=== PATIENT | male | born 1955 | race Hispanic/Latino ===

== ENCOUNTER → 2018-07-15 | Day surgery (SDC) | payer MEDICARE ==
[2018-07-13 10:30] LABS: BASOPHILS # (AUTO) 0.1 (0.0-0.1); BASOPHILS % 0.8 % (0.0-1.0); EOSINOPHILS # (AUTO) 0.2 (0.0-0.4); EOSINOPHILS % 2.7 % (0.0-6.0); HEMATOCRIT 38.2 % (38.2-49.6); HEMOGLOBIN 12.3 g/dL (14.0-18.0); LYMPHOCYTES # (AUTO) 1.6 (1.0-3.2); LYMPHOCYTES % 26.2 % (18.0-39.1); MEAN CORPUSCULAR HEMOGLOBIN 29.9 pg (28-32); MEAN CORPUSCULAR HGB CONC 32.2 g/dL (31-35); MEAN CORPUSCULAR VOLUME 92.9 fL (81-99); MONOCYTES # (AUTO) 0.5 (0.2-0.8); MONOCYTES % 8.7 % (4.4-11.3); NEUTROPHILS # (AUTO) 3.8 (2.1-6.9); NEUTROPHILS % 61.1 % (38.7-80.0); PLATELET COUNT 160 x10e3/uL (140-360); RED BLOOD COUNT 4.11 x10e6/uL (4.3-5.7); RED CELL DISTRIBUTION WIDTH 14.8 % (11.7-14.4)
[~2018-07-15] MED LIST: ASPIR 8181 MG PO; ATORVASTATIN CA20 MG PO; CALTRATE-600 W1 EACH PO; DEXTROSE 5% 250ML 250 ML IV ONE; FENTANYL CITRATE/PF 100MCG/2 ML INJ ONE; FUROSEMIDE40 MG PO; GABAPENTIN300 MG PO; HYOSCYAMINE SULFATE 0.5 MG/ML INJ ONE; IRON PO; ISOSORBIDE MONO30 MG PO; LISINOPRIL10 MG PO; MENS ONE A DAY PO; METFORMIN HCL500 MG PO; METOPROLOL SUCC25 MG PO; MIDAZOLAM HCL 2 MG/2 ML VIAL ONE; OMEPRAZOLE40 MG PO; PROPOFOL IV EMULSION 10 MG/ML 50 ML VIAL ONE; TIZANIDINE HCL4 MG PO
--- OUTSIDE RECORDS SUMMARY | 2018-07-15 06:43 | XMS REPORT ---
[facility] Address Unknown Phone Unavailable Care Team Providers Care Water Treatment Technician Name Role Phone Unavailable Unavailable Payers Payer Name Policy Type Policy Number Effective Date Expiration Date Problems This patient has no known problems. Allergies, Adverse Reactions, Alerts Allergy Name Allergy Type Status Severity Reaction(s) Onset Date Inactive Date Treating Clinician Comments No Known Allergies DA Active U 2018-03-16 00:00:00 No Known Allergies DA Active U 2017-06-18 00:00:00 Medications This patient has no known medications. Encounters Start Date/Time End Date/Time Encounter Type Admission Type Attending [facility] Facility Care Department Encounter ID 2018-10-05 00:00:00 2018-10-05 00:00:[address] [facility] [id number] 2018-08-26 00:00:00 2018-08-26 00:00:[address] [facility] [id number] 2018-07-26 00:00:00 2018-07-26 00:00:[address] [facility] [id number] 2018-07-13 12:09:26 2018-07-13 12:09:[address] [facility] [id number] 2018-07-07 09:42:39 2018-07-07 09:42:[address] [facility] [id number] 2018-06-28 10:25:22 2018-06-28 10:25:[address] [facility] [id number] 2018-06-24 00:00:00 2018-06-24 00:00:[address] [facility] [id number] 2018-06-23 13:22:28 2018-06-23 13:22:[address] [facility] [id number] 2018-06-22 11:46:42 2018-06-22 11:46:[address] [facility] [id number] 2018-06-22 11:39:31 2018-06-22 11:39:[address] [facility] [id number] 2018-06-21 00:00:00 2018-06-21 00:00:[address] [facility] [id number] 2018-06-16 09:34:34 2018-06-16 09:34:[address] [facility] [id number] 2018-06-03 16:10:58 2018-06-03 16:10:[address] [facility] [id number] 2018-06-03 14:25:47 2018-06-03 14:25:[address] [facility] [id number] 2018-05-31 09:24:51 2018-05-31 09:24:[address] [facility] [id number] 2018-05-27 09:09:36 2018-05-27 09:09:[address] [facility] [id number] 2018-04-26 10:21:46 2018-04-26 10:21:[address] [facility] [id number] 2018-04-05 18:49:08 2018-04-05 18:49:[address] [facility] [id number] 2018-03-30 15:09:38 2018-03-30 15:09:[address] [facility] [id number] 2018-03-23 10:55:21 2018-03-23 10:55:[address] [facility] [id number] 2018-03-23 10:21:59 2018-03-23 10:21:[address] [facility] [id number] 2018-03-16 11:10:29 2018-03-16 11:10:[address] [facility] [id number] 2018-03-16 09:46:55 2018-03-16 09:46:[address] [facility] [id number] 2018-03-16 00:00:00 2018-03-16 00:00:[address] [facility] [id number] 2018-03-04 00:00:00 2018-03-04 00:00:[address] [facility] [id number] 2018-02-26 11:04:17 2018-02-26 11:04:[address] [facility] [id number] 2018-02-18 13:04:58 2018-02-18 13:04:[address] [facility] [id number] 2018-02-18 11:20:38 2018-02-18 11:20:[address] [facility] [id number] 2018-02-18 10:25:56 2018-02-18 10:25:[address] [facility] [id number] 2018-02-15 00:00:00 2018-02-15 00:00:[address] [facility] [id number] 2018-02-12 09:27:56 2018-02-12 09:27:[address] [facility] [id number] 2018-02-08 00:00:00 2018-02-08 00:00:[address] [facility] [id number] 2018-01-23 16:00:22 2018-01-23 16:00:[address] [facility] [id number] 2018-01-22 09:29:33 2018-01-22 09:29:[address] [facility] [id number] 2018-01-12 00:00:00 2018-01-12 00:00:[address] [facility] [id number] 2018-01-01 00:00:00 2018-01-01 00:00:[address] [facility] [id number] 2017-12-31 10:53:40 2017-12-31 10:53:[address] [facility] [id number] 2017-12-30 15:16:19 2017-12-30 15:16:[address] [facility] [id number] 2017-12-30 00:00:00 2017-12-30 00:00:[address] [facility] [id number] 2017-12-23 14:58:16 2017-12-23 14:58:[address] [facility] [id number] 2017-12-15 09:09:17 2017-12-15 09:09:[address] [facility] [id number] 2017-12-15 00:00:00 2017-12-15 00:00:[address] [facility] [id number] 2017-12-08 00:00:00 2017-12-08 00:00:[address] [facility] [id number] 2017-11-30 06:37:53 2017-11-30 06:37:[address] [facility] [id number] 2017-11-26 10:07:00 2017-11-26 10:07:[address] [facility] [id number] 2017-11-18 07:19:10 2017-11-18 07:19:[address] [facility] [id number] 2017-11-17 12:36:21 2017-11-17 12:36:[address] [facility] [id number] 2017-11-17 09:12:15 2017-11-17 09:12:[address] [facility] [id number] 2017-11-16 00:00:00 2017-11-16 00:00:[address] [facility] [id number] 2017-11-12 00:00:00 2017-11-12 00:00:[address] [facility] [id number] 2017-11-12 00:00:00 2017-11-12 00:00:[address] [facility] [id number] 2017-11-06 13:00:02 2017-11-06 13:00:[address] [facility] [id number] 2017-10-29 16:15:03 2017-10-29 16:15:[address] [facility] [id number] 2017-10-29 14:26:57 2017-10-29 14:26:[address] [facility] [id number] 2017-10-22 09:50:34 2017-10-22 09:50:[address] [facility] [id number] 2017-10-15 10:31:04 2017-10-15 10:31:[address] [facility] [id number] 2017-10-15 08:24:54 2017-10-15 08:24:[address] [facility] [id number] 2017-10-09 00:00:00 2017-10-09 00:00:[address] [facility] [id number] 2017-10-08 13:35:27 2017-10-08 13:35:[address] [facility] [id number] 2017-10-05 00:00:00 2017-10-05 00:00:[address] [facility] [id number] 2017-10-01 10:58:14 2017-10-01 10:58:[address] [facility] [id number] 2017-09-28 08:52:36 2017-09-28 08:52:[address] [facility] [id number] 2017-09-28 08:15:14 2017-09-28 08:15:[address] [facility] [id number] 2017-09-24 08:02:07 2017-09-24 08:02:[address] [facility] [id number] 2017-09-16 11:18:17 2017-09-16 11:18:[address] [facility] [id number] 2017-06-24 00:00:00 2017-06-24 00:00:[address] [facility] [id number] 2017-05-28 00:00:00 2017-05-28 00:00:[address] [facility] [id number] 2017-05-27 00:00:00 2017-05-27 00:00:[address] [facility] [id number] 2017-05-26 00:00:00 2017-05-26 00:00:[address] [facility] [id number] 2017-05-20 00:00:00 2017-05-20 00:00:[address] [facility] [id number] 2017-05-20 00:00:00 2017-05-20 00:00:[address] [facility] [id number] 2017-05-18 00:00:00 2017-05-18 00:00:[address] [facility] [id number] 2017-05-15 14:53:57 2017-05-15 14:53:[address] [facility] [id number] 2017-05-14 10:27:22 2017-05-14 10:27:[address] [facility] [id number] 2017-05-12 00:00:00 2017-05-12 00:00:[address] [facility] [id number] 2017-05-05 16:31:02 2017-05-05 16:31:[address] [facility] [id number] 2017-05-05 14:10:13 2017-05-05 14:10:[address] [facility] [id number] 2017-04-30 00:00:00 2017-04-30 00:00:[address] [facility] [id number] 2017-04-29 00:00:00 2017-04-29 00:00:[address] [facility] [id number] 2017-04-06 00:00:00 2017-04-06 00:00:00 Outpatient [facility] [id number] 2017-04-01 00:00:00 2017-04-01 00:00:[address] [facility] [id number] 2017-03-26 15:24:49 2017-03-26 15:24:[address] [facility] [id number] 2017-03-06 14:34:42 2017-03-06 14:34:42 Outpatient [facility] [id number] 2017-03-05 00:00:00 2017-03-05 00:00:[address] [facility] [id number] 2017-02-23 00:00:00 2017-02-23 00:00:[address] [facility] [id number] 2017-02-19 18:19:14 2017-02-19 18:19:[address] [facility] [id number] 2017-02-19 16:30:51 2017-02-19 16:30:[address] [facility] [id number] 2017-02-19 14:43:55 2017-02-19 14:43:[address] [facility] [id number] 2017-02-19 13:49:36 2017-02-19 13:49:36 Outpatient [facility] [id number] 2017-02-19 11:29:15 2017-02-19 11:29:[address] [facility] [id number] 2017-02-18 12:19:16 2017-02-18 12:19:[address] [facility] [id number] 2017-02-18 10:02:24 2017-02-18 10:02:[address] [facility] [id number] 2017-02-16 10:17:29 2017-02-16 10:17:[address] [facility] [id number] 2017-02-10 14:23:39 2017-02-10 14:23:[address] [facility] [id number] 2017-02-04 15:56:04 2017-02-04 15:56:[address] [facility] [id number] 2017-02-04 14:39:01 2017-02-04 14:39:[address] [facility] [id number] 00:00:00 2017 00:00:[address] [facility] [id number] 2017-01-26 00:00:00 2017-01-26 00:00:[address] [facility] [id number] 2017-01-26 00:00:00 2017-01-26 00:00:[address] [facility] [id number] 2017-01-23 14:08:36 2017-01-23 14:08:[address] [facility] [id number] 2017-01-23 13:58:21 2017-01-23 13:58:[address] [facility] [id number] 2017-01-23 12:26:55 2017-01-23 12:26:[address] [facility] [id number] 2017-01-23 00:00:00 2017-01-23 00:00:[address] [facility] [id number] 2017-01-19 00:00:00 2017-01-19 00:00:[address] [facility] [id number] 2017-01-19 00:00:00 2017-01-19 00:00:[address] [facility] [id number] 2017-01-19 00:00:00 2017-01-19 00:00:[address] [facility] [id number] 2017-01-16 10:56:57 2017-01-16 10:56:[address] [facility] [id number] 2017-01-15 14:02:12 2017-01-15 14:02:[address] [facility] [id number] 2017-01-15 13:18:01 2017-01-15 13:18:[address] [facility] [id number] 2017-01-13 08:54:23 2017-01-13 08:54:[address] [facility] [id number] 2017-01-12 13:06:48 2017-01-12 13:06:[address] [facility] [id number] 2017-01-09 13:19:54 2017-01-09 13:19:[address] [facility] [id number] 2017-01-09 09:27:44 2017-01-09 09:27:[address] [facility] [id number] 2017-01-07 16:17:06 2017-01-07 16:17:[address] [facility] [id number]
[2018-07-15 11:10] VITALS: BP 121/68
--- NOTE | 2018-07-15 12:16 | Operative Report ---
DATE OF PROCEDURE: 07/15/2018 SURGEON: Earle Adair MD PROCEDURES: Colonoscopy and polypectomy. INDICATIONS FOR COLONOSCOPY: Surveillance colonoscopy, personal history of colon polyps. MEDICATIONS: The patient was done under MAC, please see anesthesiologist's note. PROCEDURE IN DETAIL: With the patient in left lateral decubitus position, flexible fiberoptic Olympus colonoscope was inserted into the rectum with ease and advanced all the way to the cecum. The scope was then withdrawn slowly and mucosa overlying the cecum, ascending colon grossly appeared to be within normal limits. Of note, the colon was excessively spastic and irritable and suboptimally visualized. One polyp was hot biopsied from the transverse colon. The descending grossly appeared to be within normal limits. One polyp was snared from the sigmoid colon and eight polyps were hot biopsied from the sigmoid colon. Four polyps were hot biopsied from the rectum. The scope was then retroflexed into the distal rectum and small internal hemorrhoids were noted, none of which was actively bleeding. There was an extrinsic compression noted against the distal rectal wall. The patient will need a CAT scan of the pelvis to further delineate the nature of that compression. The scope was then straightened out. The scope was subsequently withdrawn. The patient tolerated procedure well. IMPRESSION: 1. Colon excessively spastic and irritable and suboptimally visualized. 2. Transverse colon polyp, hot biopsied. 3. Sigmoid colon polyps x9, one snared and eight hot biopsied. 4. Rectal polyps x4 hot biopsied. 5. Extrinsic compression, distal rectum. 6. Internal hemorrhoids, none actively bleeding. A total of 14 polyps were removed. PLAN: Follow up histology. Initiate high-fiber, low-fat diet. Initiate high-fiber supplement. The patient will need a CT of the pelvis to delineate the nature of the extrinsic compression against the distal rectal wall. The patient will need a followup colonoscopy in one year. MD ROBERT Maddox/BEE /[id number]
== END | disposition home or self-care (01) ==
LOC: OR 06:41
PROVIDERS: ATTEND Internal Medicine Gastroenterology
DX: K58.9 Irritable bowel syndrome, unspecified (principal); D12.3 Benign neoplasm of transverse colon; K62.1 Rectal polyp; K62.89 Other specified diseases of anus and rectum; K64.8 Other hemorrhoids; K59.09 Other constipation; K21.9 Gastro-esophageal reflux disease without esophagitis; E11.9 Type 2 diabetes mellitus without complications; G62.9 Polyneuropathy, unspecified; M19.90 Unspecified osteoarthritis, unspecified site; I25.810 Atherosclerosis of coronary artery bypass graft(s) without angina pectoris; I25.2 Old myocardial infarction; I11.0 Hypertensive heart disease with heart failure; I50.9 Heart failure, unspecified; Z01.810 Encounter for preprocedural cardiovascular examination; Z01.812 Encounter for preprocedural laboratory examination; Z79.82 Long term (current) use of aspirin; Z79.84 Long term (current) use of oral hypoglycemic drugs; Z87.891 Personal history of nicotine dependence; Z86.19 Personal history of other infectious and parasitic diseases; Z95.1 Presence of aortocoronary bypass graft
CPT/HCPCS: 36415 ×2; 45384; 45385; 82948; 85025; 93005; J1980; J2250; J2704; J7070

== ENCOUNTER → 2018-08-26 | Outpatient (CLI) | payer MEDICARE ==
[~2018-08-26] MED LIST changes: -DEXTROSE 5% 250ML 250 ML IV ONE; +DIATRIZOATE MEGL/DIATRIZOA SOD 30 ML BTL PO ONE; -FENTANYL CITRATE/PF 100MCG/2 ML INJ ONE; -HYOSCYAMINE SULFATE 0.5 MG/ML INJ ONE; +IOPAMIDOL 370 MG/ML 200 ML INFUS..BTL INJ ONE; -MIDAZOLAM HCL 2 MG/2 ML VIAL ONE; -PROPOFOL IV EMULSION 10 MG/ML 50 ML VIAL ONE; +SODIUM CHLORIDE 0.9% 50ML 50 ML ONE
[2018-08-26 11:36] LABS: BLOOD UREA NITROGEN 19 mg/dL (7-26); BUN/CREATININE RATIO 19 (6-25); CREATININE, SERUM 0.99 mg/dL (0.72-1.25); EST GLOMERULAR FILTRATION RATE > 60 ML/MIN (60-)
--- NOTE | 2018-08-26 12:34 | Diagnostic Imaging Report ---
EXAM: CT Pelvis with contrast INDICATION: Tubular adenoma of the colon. COMPARISON: None. TECHNIQUE: The pelvis was scanned utilizing a multidetector helical scanner from the iliac crests to the pubic symphysis after administration of IV contrast. Coronal and sagittal reformations were obtained. Routine protocol was performed. Scan was performed when during portal venous phase. IV CONTRAST: 100 cc of Isovue 370. ORAL CONTRAST: Volumen COMPLICATIONS: None RADIATION DOSE: Total DLP: 282.9 mGy*cm Dose modulation, iterative reconstruction, and/or weight based adjustment of the mA/kV was utilized to reduce the radiation dose to as low as reasonably achievable. FINDINGS: KIDNEYS/URETERS: The lower kidneys are partially seen and appear unremarkable. GI TRACT: Partially visualized. There is negative contrast within the small bowel. There is no contrast opacification within the colon, which limits evaluation. No evidence of wall thickening or distension. PELVIC ORGANS/BLADDER: The bladder is unremarkable. There are calcified within the prostate. LYMPH NODES: No lymphadenopathy. VESSELS: Moderate to extensive atherosclerotic changes of the distal abdominal aorta and iliac vascular vessels. PERITONEUM / RETROPERITONEUM: No free air or fluid. BONES AND SOFT TISSUES: There has been posterior decompression and fusion from L4 through S1. No acute osseous abnormality. Likely postsurgical changes of the left iliac bone adjacent to the sacroiliac joint, which may reflect a bone graft site. CONCLUSION: Limited examination of the colon secondary to lack of contrast passage into the colon. If there is clinical concern for colon pathology, CT colonography may be considered for further evaluation. No acute CT findings in the pelvis. Signed by: Dr. Reggie Cárdenas MD on 08/26/2018 12:30 PM
== END ==
LOC: CT 09:57
PROVIDERS: ATTEND Internal Medicine Gastroenterology
DX: D12.6 Benign neoplasm of colon, unspecified (principal)
CPT/HCPCS: 36415; 72193; 82565; 84520; Q9967

== ENCOUNTER 2018-12-22 16:25 | Inpatient (IN) | payer MEDICARE, OTHER ==
[~2018-12-22] VITALS: Ht 154.4 cm; Wt 69.2 kg
[~2018-12-22 16:25] MED LIST changes: -DIATRIZOATE MEGL/DIATRIZOA SOD 30 ML BTL PO ONE; -IOPAMIDOL 370 MG/ML 200 ML INFUS..BTL INJ ONE; -SODIUM CHLORIDE 0.9% 50ML 50 ML ONE
[2018-12-22] MEDS ORDERED: PANTOPRAZOLE 40 MG 10ML VIAL IV NR ×2 (16:45→19:45)
--- NOTE | 2018-12-22 17:23 | Diagnostic Imaging Report ---
Exam: Chest one view Clinical history: Chest pain Findings: There is no evidence of pulmonary consolidation, pleural effusion, or pneumothorax. The cardiac size is within normal limits. The patient is status post cervical spine fusion with postoperative changes. Median sternotomy was also performed with postoperative changes. Impression: 1. No radiographic evidence of acute cardiorespiratory disease. Signed by: Dr. Mina Elmore MD on 12/22/2018 5:19 PM
[2018-12-22 18:33] LABS: BASOPHILS # (AUTO) 0.1 (0.0-0.1); BASOPHILS % 0.5 % (0.0-1.0); EOSINOPHILS # (AUTO) 0.2 (0.0-0.4); EOSINOPHILS % 2.2 % (0.0-6.0); HEMATOCRIT 36.2 % (38.2-49.6); HEMOGLOBIN 12.2 g/dL (14.0-18.0); LYMPHOCYTES # (AUTO) 2.6 (1.0-3.2); LYMPHOCYTES % 26.8 % (18.0-39.1); MEAN CORPUSCULAR HGB CONC 33.7 g/dL (31-35); MEAN CORPUSCULAR VOLUME 91.9 fL (81-99); MONOCYTES # (AUTO) 0.7 (0.2-0.8); MONOCYTES % 7.3 % (4.4-11.3); NEUTROPHILS % 62.7 % (38.7-80.0); PLATELET COUNT 170 x10e3/uL (140-360); RED BLOOD COUNT 3.94 x10e6/uL (4.3-5.7); RED CELL DISTRIBUTION WIDTH 13.9 % (11.7-14.4)
[2018-12-22] MEDS ORDERED: SODIUM CHLORIDE 0.9% 1000ML 1,000 ML ONE (18:36)
[2018-12-22 18:39] LABS: INR 0.97; PROTHROMBIN TIME 13.4 seconds (11.9-14.5)
[2018-12-22 18:40] LABS: PARTIAL THROMBOPLASTIN TIME 29.4 seconds (23.8-35.5)
--- NOTE | 2018-12-22 18:41 | Diagnostic Imaging Report ---
EXAM: Gallbladder Ultrasound INDICATION: ^RUQ ABD PAIN COMPARISON: None. TECHNIQUE: Transverse and longitudinal images of the gallbladder were obtained. FINDINGS: Liver: Unremarkable in appearance measuring 11.5 cm Gallbladder: Stones/Sludge: Numerous gallstones in the lumen of the gallbladder Wall: 0.2 cm Appearance: No wall thickening, pericholecystic fluid or hydrops. Sonographic Decker's Sign: Negative Bile Ducts: Intrahepatic Ducts: No dilatation Extrahepatic Ducts: Common bile duct measures 0.5 cm, no dilatation Main portal vein and normal in appearance measuring 1.2 cm. 2.3 x 2.0 x 1.9 cm simple appearing lateral right renal cyst. Right kidney otherwise normal in appearance measuring 9.6 cm. Pancreas and abdominal aorta not well seen. Inferior vena cava grossly unremarkable. Free Fluid: No ascites or pleural effusion IMPRESSION: Numerous gallstones in the lumen of the gallbladder. No ductal dilatation. 2.3 cm lateral simple appearing right renal cyst Signed by: Dr. Harman Orozco M.D. on 12/22/2018 6:37 PM
[2018-12-22] MEDS ORDERED: SODIUM CHLORIDE 0.9% IV SCH (18:45)
[2018-12-22 18:46] LABS: ALBUMIN 4.5 g/dL (3.5-5.0); ALBUMIN/GLOBULIN RATIO 1.5 (0.8-2.0); CALCIUM 10.5 mg/dL (8.4-10.2); CREATININE, SERUM 1.56 mg/dL (0.72-1.25); MAGNESIUM 1.5 MG/DL (1.3-2.1)
[2018-12-22 18:55] LABS: CREATINE KINASE MB 1.4 ng/mL (0-5.0)
[2018-12-22] MEDS ORDERED: SODIUM CHLORIDE 0.9% 1000ML 1,000 ML IV SCH (19:29)
[2018-12-22 21:07] LABS: BILIRUBIN,URINE NEGATIVE (NEGATIVE); CLARITY,URINE CLEAR (CLEAR); COLOR,URINE YELLOW (YELLOW); KETONES,URINE NEGATIVE (NEGATIVE); LEUKOCYTE ESTERASE ,URINE NEGATIVE (NEGATIVE); NITRITE,URINE NEGATIVE (NEGATIVE); PROTEIN,URINE DIPSTICK NEGATIVE (NEGATIVE); URINE UROBILINOGEN 0.2 mg/dL (0.2 - 1)
[2018-12-22 21:19] LABS: BACTERIA,URINE MODERATE /HPF; EPITHELIAL CELLS,URINE RARE /LPF; HYALINE CASTS 0-1 (0-1); RENAL EPITHELIAL CELLS,URINE FEW
--- NOTE | 2018-12-22 21:19 | NUR ---
bs 60. pt asymptomatic. informed. juice x 2 cups given per orders.
[2018-12-22 21:35] VITALS: BP 159/74
[2018-12-22 21:45] VITALS: BP 159/74
--- NOTE | 2018-12-22 21:45 | NUR ---
RECEIVED FROM ER IN A STRETCHER WITH C/O ABD.PAIN.AAOX3.AMBULATES WITH CANE.NO RESP.DISTRESS .ASSESSMENT DONE.IV RUNNING TO LEFT FOR ARM #18G.SNACK PROVIDED.TOLERATES CLEAR LIQUID DIET.CONSULTS CALLED.ORIENTED TO THE UNIT.BED LOCKED AND IN LOWEST POSITION.PHONE AND CALL LIGHT WITHIN REACH.INSTRUCTED TO CALL FOR ASSISTANCE NEEDED.
[2018-12-22 22:00] VITALS: BP 159/74
[2018-12-22] MEDS: MORPHINE SULFATE INJ 4 MG/ML INJ 1ML IV PRN (23:00)
[2018-12-22] MEDS: ONDANSETRON HCL INJ 2MG/ML 2ML 2 MG/ML VIAL IV PRN (23:00)
[2018-12-22] MEDS ORDERED: HUMULIN N100 UNITS/ SC ×2 (23:33)
[2018-12-23] VITALS (8 sets, daily range): BP systolic 124–156; BP diastolic 60–77
[2018-12-23] MEDS: PANTOPRAZOLE 40 MG 10ML VIAL IV SCH ×2 (01:56→14:17)
[2018-12-23] MEDS: ACETAMINOPHEN 325 MG TAB PO PRN (03:00)
--- NOTE | 2018-12-23 04:04 | NUR ---
DR.M SÁNCHEZ WAS IN THE UNIT.C/O HEADACHE.RECEIVED NEW ORDERS FROM .NPO FOR HIDA SCAN.
[2018-12-23 05:40] LABS: BASOPHILS % 0.6 % (0.0-1.0); EOSINOPHILS # (AUTO) 0.3 (0.0-0.4); EOSINOPHILS % 3.5 % (0.0-6.0); HEMATOCRIT 33.8 % (38.2-49.6); HEMOGLOBIN 11.5 g/dL (14.0-18.0); LYMPHOCYTES # (AUTO) 2.4 (1.0-3.2); LYMPHOCYTES % 33.8 % (18.0-39.1); MEAN CORPUSCULAR HEMOGLOBIN 31.2 pg (28-32); MEAN CORPUSCULAR VOLUME 91.6 fL (81-99); MONOCYTES # (AUTO) 0.5 (0.2-0.8); NEUTROPHILS # (AUTO) 3.9 (2.1-6.9); NEUTROPHILS % 54.8 % (38.7-80.0); PLATELET COUNT 140 x10e3/uL (140-360); RED BLOOD COUNT 3.69 x10e6/uL (4.3-5.7); RED CELL DISTRIBUTION WIDTH 13.9 % (11.7-14.4)
[2018-12-23 06:03] LABS: ALANINE AMINOTRANSFERASE 16 IU/L (0-55); ALBUMIN 3.8 g/dL (3.5-5.0); ALBUMIN/GLOBULIN RATIO 1.3 (0.8-2.0); ALKALINE PHOSPHATASE 74 IU/L (40-150); ANION GAP 10.5 mmol/L (8-16); BLOOD UREA NITROGEN 19 mg/dL (7-26); BUN/CREATININE RATIO 16 (6-25); CALCIUM 9.9 mg/dL (8.4-10.2); CARBON DIOXIDE 29 mmol/L (22-29); CHLORIDE 105 mmol/L (98-107); EST GLOMERULAR FILTRATION RATE > 60 ML/MIN (60-); GLUCOSE 125 mg/dL (74-118); POTASSIUM 4.5 mmol/L (3.5-5.1); SODIUM 140 mmol/L (136-145)
--- NOTE | 2018-12-23 07:00 | NUR ---
Bed side shift report given to the oncoming rn.stable condition.
--- NOTE | 2018-12-23 07:00 | NUR ---
BEDSIDE SHIFT REPORT RECEIVED FROM NIGHT RN. PT DENIES NEEDS AT THIS TIME.
[2018-12-23] MEDS: ONDANSETRON HCL INJ 2MG/ML 2ML 2 MG/ML VIAL IV PRN ×2 (07:16→23:41)
[2018-12-23] MEDS: MORPHINE SULFATE INJ 4 MG/ML INJ 1ML IV PRN ×3 (07:16→23:41)
[2018-12-23] MEDS ORDERED: DEXTROSE 5%/LACTATED RINGERS 1,000 ML IV ONE (07:45)
[2018-12-23] MEDS: GABAPENTIN 300 MG CAP PO SCH ×3 (08:27→21:35)
[2018-12-23] MEDS ORDERED: TIZANIDINE HCL 4 MG TAB PO PRN (10:00)
--- NOTE | 2018-12-23 16:08 | NUR ---
PT OFF THE UNIT TO [employer].
[2018-12-23] MEDS ORDERED: FUROSEMIDE 40 MG TAB PO SCH (17:00)
[2018-12-23] MEDS ORDERED: MORPHINE SULFATE INJ 4 MG/ML INJ 1ML IV ONE (18:15)
--- NOTE | 2018-12-23 18:57 | NUR ---
CALLS MADE TO [facility] AND [facility] FOR MRI REPORT FROM RECENT MRI. REQUEST FAXED BY THIS NURSE WITH CONFIRMATION. NO REPORT RECEIVED AFTER NUMEROUS PHONE CALLS TO [facility]. THIS MATTER WAS DISCUSSED WITH CHARGE NURSE WITH CALL INFORMATION GIVEN AND NUMEROUS ATTEMPTS BY THE CHARGE TO GET MRI REPORT. REQUEST FAXED AGAIN WITH NO REPLY OF INFORMATION. FAX WAS CONFIRMED.
--- NOTE | 2018-12-23 19:10 | NUR ---
Report taken from morning Elli Yuen.Patient is lyeing in the bed.stable condition.
--- NOTE | 2018-12-23 19:15 | Diagnostic Imaging Report ---
EXAM: HIDA Scan with Morphine Challenge INDICATION: Abdominal pain x 2 months; cholelithiasis Report: Following the administration of 6 mCi of Tc-99m mebrofenin, dynamic images of the abdomen in the anterior projection were obtained through 60 minutes. Morphine sulfate 3 mg was administered intravenously and additional images were obtained through 30 minutes. Perfusion of the liver is normal. Extraction of tracer from the blood pool by the liver parenchyma is normal. Tracer appears promptly with in the biliary tract. Tracer is seen in the small bowel by 27 minutes post injection of the tracer. The gallbladder does not fill during the initial 60 minutes of imaging but does fill promptly following administration of morphine. Impression: Filling of the gallbladder excludes acute cystic duct obstruction/acute cholecystitis. Signed by: Dr. Padmini Lee M.D. on 12/23/2018 7:12 PM
[2018-12-23] MEDS ORDERED: ATORVASTATIN 20 MG TAB PO SCH (21:00)
--- NOTE | 2018-12-23 21:10 | NUR ---
Patient is agitated.stating want go home.hungry and need food other than clear liquid diet.notified to .received new orders.also charge nurse came and talked to the pt.plan of care discussed with pt.
[2018-12-24] VITALS (9 sets, daily range): BP systolic 112–182; BP diastolic 58–86
--- NOTE | 2018-12-24 01:03 | NUR ---
MAINTAINING NPO FOR CT SCAN LIVER.
[2018-12-24] MEDS: PANTOPRAZOLE 40 MG 10ML VIAL IV SCH ×2 (01:17→14:35)
[2018-12-24] MEDS ORDERED: HYDROCODONE/APAP 10MG-325MG TAB PO PRN (03:15)
--- NOTE | 2018-12-24 03:24 | NUR ---
is seeing the patient.tyesha morrissey voiced.ordered to give norco 10 mg po even though patient is on npo.carried out the order.
[2018-12-24] MEDS: ONDANSETRON HCL INJ 2MG/ML 2ML 2 MG/ML VIAL IV PRN ×2 (04:42→21:12)
[2018-12-24] MEDS: MORPHINE SULFATE INJ 4 MG/ML INJ 1ML IV PRN ×2 (04:43→12:36)
--- NOTE | 2018-12-24 06:50 | NUR ---
Bed side shift report given to the oncoming Rn.stable condition.
--- NOTE | 2018-12-24 07:00 | NUR ---
BEDSIDE SHIFT REPORT RECEIVED FROM NIGHT RN. PT DENIES NEEDS AT THIS TIME.
[2018-12-24] MEDS ORDERED: DIATRIZOATE MEGL/DIATRIZOA SOD 30 ML BTL PO ONE (08:09)
--- NOTE | 2018-12-24 08:21 | NUR ---
SPOKE TO MS MATHEW IN RECORD RELEASE DEPARTMENT THIS AM CONCERNING PREVIOUS DAYS REQUEST. RECORDS WERE FAXED THIS AM.
[2018-12-24] MEDS: GABAPENTIN 300 MG CAP PO SCH ×3 (09:00→21:00)
[2018-12-24] MEDS: ISOSORBIDE MONONITRATE 30 MG TAB CR PO SCH (09:00)
[2018-12-24] MEDS: METOPROLOL SUCCINATE 25 MG TAB XL PO SCH (09:00)
[2018-12-24] MEDS: FUROSEMIDE 20 MG TAB PO SCH ×2 (09:00→17:26)
[2018-12-24] MEDS: LISINOPRIL 10 MG TAB PO SCH (09:58)
--- NOTE | 2018-12-24 10:11 | Diagnostic Imaging Report ---
CT of the abdomen, with contrast, 12/24/2018. History: Right upper quadrant pain. Comparison: Ultrasound 12/22/2018. Technique: Multidetector CT scanning of the abdomen and pelvis was performed from the level of the lung bases to the iliac crests after intravenous and oral administration of contrast. Coronal and sagittal multiplanar reformations were obtained. RADIATION DOSE: Total DLP: 390 mGy*cm Dose modulation, iterative reconstruction, and/or weight based adjustment of the mA/kV was utilized to reduce the radiation dose to as low as reasonably achievable. Discussion: LUNG BASES: There is bibasilar atelectasis. ABDOMEN: Multiple low-density stones are present within the gallbladder. There is no gallbladder wall thickening. A 2 cm simple cyst is present in the lower pole of the right kidney. The liver, biliary tree, spleen, pancreas, adrenal glands, and kidneys are normal. The hepatic vein, portal vein, and splenic vein are patent. The abdominal aorta has diffuse atherosclerotic plaque and calcification but is within normal limits for size. The stomach and visualized bowel are unremarkable. There is no bowel dilatation. There is no evidence of adenopathy or free fluid. BONES AND SOFT TISSUES: Advanced degenerative and postsurgical changes are within the lumbar spine without evidence of lytic or sclerotic lesion. IMPRESSION: 1. Cholelithiasis. 2. Simple right renal cyst. Otherwise unremarkable exam. Signed by: Virgilio Whalen on 12/24/2018 10:08 AM
[2018-12-24] MEDS ORDERED: BUPIVACAINE 0.25%/EPI 30ML SDV INJ ONE (15:02)
--- NOTE | 2018-12-24 16:05 | NUR ---
PT OFF THE UNIT TO OR.
[2018-12-24] MEDS ORDERED: NEOSTIGMINE 5 MG/5ML SYR ONE (17:30)
[2018-12-24] MEDS ORDERED: LIDOCAINE HCL 2% LOCAL INJ 5 ML SDV VIAL INJ ONE (17:30)
[2018-12-24] MEDS ORDERED: ONDANSETRON HCL INJ 2MG/ML 2ML 2 MG/ML VIAL ONE (17:30)
[2018-12-24] MEDS ORDERED: PROPOFOL IV EMULSION 10 MG/ML 20 ML VIAL ONE (17:30)
[2018-12-24] MEDS ORDERED: GLYCOPYRROLATE INJ 1MG/ 5 ML SYR ONE (17:30)
[2018-12-24] MEDS ORDERED: ROCURONIUM BROMIDE 10 MG/ML 5ML VIAL ONE (17:30)
[2018-12-24] MEDS ORDERED: SEVOFLURANE INHAL SOLN 250 ML PEN BTL ONE (17:30)
[2018-12-24] MEDS ORDERED: MIDAZOLAM HCL 2 MG/2 ML VIAL ONE (17:52)
[2018-12-24] MEDS ORDERED: KETAMINE HCL INJ 50 MG/ML 10 ML VIAL ONE (17:52)
[2018-12-24] MEDS ORDERED: FENTANYL CITRATE/PF 100MCG/2 ML INJ ONE ×2 (17:52→19:15)
[2018-12-24] MEDS ORDERED: MEPERIDINE HCL INJ 25 MG/ML VIAL ONE (18:14)
[2018-12-24] MEDS ORDERED: ACETAMINOPHEN 1000 MG/100 ML IV PRN (18:15)
[2018-12-24] MEDS ORDERED: PANTOPRAZOLE 40 MG 10ML VIAL IV SCH (18:15)
[2018-12-24] MEDS ORDERED: DEXTROSE 50% SYRINGE 50 ML IV PRN (18:30)
[2018-12-24] MEDS ORDERED: HYDROMORPHONE 1MG/1ML INJ ONE (18:37)
--- NOTE | 2018-12-24 19:00 | NUR ---
REPORT RECEIVED, WHITE BOARD UPDATED, PT CURRENTLY IN OR FOR PROCEDURE.
--- NOTE | 2018-12-24 19:31 | NUR ---
RECEIVED REPORT FROM MARIA ANTONIA GAMBLE IN PACU FOR PT RETURNING TO ROOM 103.
--- NOTE | 2018-12-24 19:37 | NUR ---
RECEIVED PT BY HOSPITAL BED TO ROOM 103, PT IS SEDATED, MOANING ABOUT ABDOMINAL PAIN, WHEN PT IS NOT BEING STIMULATED BY VOICE OR TOUCH PT RETURNS TO SLEEP AND STOPS MOANING, WILL CONTINUE TO MONITOR. FAMILY NOTIFIED OF PATIENTS RETURN. LEFT PT LAYING SEMI FOWLERS IN BED, BED IN LOW LOCKED POSITION, SIDE RAILS UPX3, CALL LIGHT AND PHONE WITHIN REACH.
[2018-12-24] MEDS ORDERED: ATORVASTATIN 40 MG TAB PO SCH (21:00)
[2018-12-24] MEDS: INSULIN REGULAR, HUMAN 100 UNIT/1 ML 3ML VIAL SQ SCH (21:00)
[2018-12-24] MEDS: HYDROMORPHONE 1MG/1ML INJ IV PRN (21:12)
[2018-12-24] MEDS: SODIUM CHLORIDE 0.9% 1000ML 1,000 ML IV SCH (21:13)
[2018-12-24] MEDS ORDERED: SODIUM CHLORIDE 0.9% 50ML 50 ML ONE (22:27)
[2018-12-24] MEDS ORDERED: IOPAMIDOL 370 MG/ML 200 ML INFUS..BTL INJ ONE (22:27)
[2018-12-25] VITALS (8 sets, daily range): BP systolic 105–140; BP diastolic 56–66
[2018-12-25] MEDS ORDERED: INSULIN REGULAR, HUMAN 100 UNIT/1 ML 3ML VIAL SQ SCH
[2018-12-25] MEDS: HYDROMORPHONE 1MG/1ML INJ IV PRN ×2 (00:29→05:32)
--- NOTE | 2018-12-25 01:00 | Operative Report ---
DATE OF PROCEDURE: 12/24/2018 SURGEON: Shyam Cowan MD PREOPERATIVE DIAGNOSES: History of cholecystitis and cholelithiasis and questionable mass of the gallbladder, rule out malignancy. POSTOPERATIVE DIAGNOSES: History of cholecystitis and cholelithiasis and questionable mass of the gallbladder, rule out malignancy, pending permanent. OPERATION PERFORMED: Laparoscopic cholecystectomy. ANESTHESIA: General. COMPLICATIONS: None. ESTIMATED BLOOD LOSS: Minimal. DESCRIPTION OF PROCEDURE: With the patient lying in bed in the supine position, under good general endotracheal anesthesia, the abdomen was prepped with Betadine solution and draped in the usual manner. A Veress needle was introduced into the umbilicus and pneumoperitoneum was established without any difficulty. An 11 mm trocar was placed into the umbilicus and a 10 mm video laparoscope was placed into the intraabdominal cavity. Under direct vision, three 5 mm trocars were placed in the right subcostal region. Video laparoscopy at this point revealed a gallbladder, that was distended and there was a large stone impacted at the neck of the gallbladder. There was no obvious tumor that could be seen on the gallbladder. The liver showed some signs of early cirrhosis. The rest of the abdominal exploration was otherwise within normal limits. We decided to go ahead and proceed with a cholecystectomy. The peritoneum overlying the neck of the gallbladder was then opened and the cystic duct was identified. The cystic duct was followed to its junction with the common duct. The cystic duct was then circumferentially dissected away from the common duct, doubly clipped and divided. The cystic artery was similarly doubly clipped and divided. The gallbladder was then slowly and carefully taken off the liver bed. There was some fibrosis of the liver bed from the large stone that was there, but there was nothing that appeared to be any kind of tumor invading into the gallbladder, wall of the liver bed itself. The gallbladder was completely removed from the liver bed, placed in a pouch, and removed through the umbilicus. Video laparoscopy was then again carried out and the liver bed was found to be perfectly dry. All of the excess fluid was aspirated. The pneumoperitoneum was evacuated and all the trocars were removed under direct vision. The midline fascia at the umbilicus was then closed with a [id number] of 0 Vicryl. All layers were infiltrated on the way out with solution of 0.25% Marcaine. Subcutaneous tissue was approximated with 3-0 Vicryl and the skin was closed with subcuticular 5-0 Vicryl. Benzoin, Steri-Strips, and Band-Aids were applied. The sponge, lap, and needle count was correct. The patient tolerated the procedure well and returned to the recovery room in stable condition. MD MAEGAN Varela/BEE /[id number]
[2018-12-25] MEDS: PANTOPRAZOLE 40 MG 10ML VIAL IV SCH ×2 (02:17→14:03)
[2018-12-25 06:17] LABS: BASOPHILS % 0.2 % (0.0-1.0); EOSINOPHILS % 0.1 % (0.0-6.0); HEMATOCRIT 38.8 % (38.2-49.6); LYMPHOCYTES # (AUTO) 1.1 (1.0-3.2); LYMPHOCYTES % 8.4 % (18.0-39.1); MEAN CORPUSCULAR HEMOGLOBIN 30.5 pg (28-32); MEAN CORPUSCULAR HGB CONC 33.5 g/dL (31-35); MEAN CORPUSCULAR VOLUME 91.1 fL (81-99); MONOCYTES # (AUTO) 0.6 (0.2-0.8); MONOCYTES % 4.5 % (4.4-11.3); NEUTROPHILS # (AUTO) 11.4 (2.1-6.9); NEUTROPHILS % 86.1 % (38.7-80.0); PLATELET COUNT 113 x10e3/uL (140-360); RED BLOOD COUNT 4.26 x10e6/uL (4.3-5.7)
[2018-12-25 06:35] LABS: ALANINE AMINOTRANSFERASE 31 IU/L (0-55); ALBUMIN 3.7 g/dL (3.5-5.0); ALBUMIN/GLOBULIN RATIO 1.2 (0.8-2.0); ALKALINE PHOSPHATASE 76 IU/L (40-150); ANION GAP 16.1 mmol/L (8-16); BLOOD UREA NITROGEN 11 mg/dL (7-26); BUN/CREATININE RATIO 10 (6-25); CALCIUM 9.6 mg/dL (8.4-10.2); CARBON DIOXIDE 23 mmol/L (22-29); CHLORIDE 105 mmol/L (98-107); CREATININE, SERUM 1.07 mg/dL (0.72-1.25); EST GLOMERULAR FILTRATION RATE > 60 ML/MIN (60-); GLUCOSE 212 mg/dL (74-118); POTASSIUM 4.1 mmol/L (3.5-5.1); SODIUM 140 mmol/L (136-145)
--- NOTE | 2018-12-25 07:00 | NUR ---
BEDSIDE SHIFT REPORT RECEIVED PT IN STABLE CONDITION, UPDATED ON POC VOICED UNDERSTANDING, DENIES PAIN AT THIS TIME, CALL LIGHT IN REACH WILL CONTINUE TO MONITOR
--- NOTE | 2018-12-25 07:01 | NUR ---
RECEIVED BEDSIDE SHIFT REPORT FROM SPINNING SUPERVISOR RN, PT RESTING IN BED, IN STABLE CONDITION. CALL LIGHT WITHIN REACH. WILL CONTINUE TO MONITOR.
[2018-12-25] MEDS: SODIUM CHLORIDE 0.9% 1000ML 1,000 ML IV SCH ×2 (07:21→18:55)
[2018-12-25] MEDS: INSULIN REGULAR, HUMAN 100 UNIT/1 ML 3ML VIAL SQ SCH ×4 (07:30→21:26)
[2018-12-25] MEDS: ISOSORBIDE MONONITRATE 30 MG TAB CR PO SCH (08:45)
[2018-12-25] MEDS: GABAPENTIN 300 MG CAP PO SCH ×3 (08:46→21:26)
[2018-12-25] MEDS: LISINOPRIL 10 MG TAB PO SCH (08:46)
[2018-12-25] MEDS: METOPROLOL SUCCINATE 25 MG TAB XL PO SCH (08:46)
[2018-12-25] MEDS: FUROSEMIDE 20 MG TAB PO SCH ×2 (08:46→17:19)
[2018-12-25 08:56] LABS: BAND NEUTROPHILS % (MANUAL) 9 %; LYMPHOCYTES % (MANUAL) 16 % (19-48); MONOCYTES % (MANUAL) 7 % (3.4-9.0); NEUTROPHILS % (MANUAL) 68 % (40-74)
[2018-12-25 08:57] LABS: ANISOCYTOSIS SLIGHT; HYPOCHROMASIA SLIGHT; PLATELET ESTIMATE SLIGHTLY DECREASED; PLATELET MORPHOLOGY COMMENT NORMAL; RBC MORPHOLOGY COMMENT ABNORMAL
[2018-12-25] MEDS: HYDROCODONE/APAP 7.5MG-325MG 1 EA TAB PO PRN ×4 (09:49→22:56)
--- NOTE | 2018-12-25 10:30 | NUR ---
AMBULATED TO BATHROOM AND BACK TO BED WITH ASSISTANCE, TOLERATED WELL, CALL LIGHT IN REACH WILL CONTINUE TO MONITOR
--- NOTE | 2018-12-25 11:00 | NUR ---
UP TO CHAIR WITH ASSISTANCE, TOLERATING WELL
--- NOTE | 2018-12-25 15:01 | Diagnostic Imaging Report ---
A single frontal view of the chest. HISTORY: Bronchitis, abdominal pain, cholecystectomy COMPARISON: Chest radiograph December 22, 2018, CT of the abdomen December 24, 2018 prior to cholecystectomy. DISCUSSION: Portable technique, limits sensitivity of the exam. Soft tissue attenuation partially limits sensitivity of the exam. Tubes/Lines: None Lungs and pleura: Mild left basilar atelectasis and subtle patchy opacity. Mild right infrahilar atelectasis. No definite pleural effusion or pneumothorax is identified. Heart and mediastinum: The cardiomediastinal silhouette appear(s) unremarkable. Bones and soft tissues: Multiple median sternotomy wires. Partially visualized cervical metallic hardware. IMPRESSION: 1. Small amount of free air within the abdomen, compatible with the provided history of recent surgery. 2. Left greater than right basilar atelectasis. Superimposed left basilar aspiration may be a consideration the appropriate setting. Signed by: Dr. Frandy Medina D.O., M.M.M. on 12/25/2018 2:58 PM
[2018-12-25] MEDS: LEVOFLOXACIN 750MG/D5W 150ML 150 ML IV SCH (15:45)
--- NOTE | 2018-12-25 17:00 | NUR ---
UP TO CHAIR FOR DINNER, TOLERATING WELL
--- NOTE | 2018-12-25 19:11 | NUR ---
WALKING ROUNDS PERFORMED, RECEIVED PT LAYING SEMI FOWLERS IN BED, AAOX3, RR EVEN AND NON-LABORED, ON ROOM AIR. NO S/SX OF DISTRESS NOTED. X4 TROCAR SITES TO ANTERIOR ABD NOTED TO BE CDI. LEFT PT LAYING SEMI FOWLERS IN BED, BED IN LOW LOCKED POSITION, SIDE RAILS UPX2, CALL LIGHT AND PHONE WITHIN REACH.
[2018-12-25] MEDS: ALBUTEROL SULF 0.083% NEB SOLN 3 ML NEB NEB SCH (19:50)
[2018-12-26] VITALS (8 sets, daily range): BP systolic 127–172; BP diastolic 62–77
[2018-12-26] MEDS: ALBUTEROL SULF 0.083% NEB SOLN 3 ML NEB NEB SCH ×4 (00:08→19:19)
[2018-12-26] MEDS: SODIUM CHLORIDE 0.9% 1000ML 1,000 ML IV SCH ×2 (00:09→04:34)
[2018-12-26] MEDS: PANTOPRAZOLE 40 MG 10ML VIAL IV SCH ×2 (01:34→14:00)
[2018-12-26] MEDS: ONDANSETRON HCL INJ 2MG/ML 2ML 2 MG/ML VIAL IV PRN ×3 (01:35→22:27)
[2018-12-26] MEDS: HYDROMORPHONE 1MG/1ML INJ IV PRN ×3 (01:35→22:27)
[2018-12-26] MEDS: ACETAMINOPHEN 325 MG TAB PO PRN (04:32)
[2018-12-26 06:58] LABS: BASOPHILS % 0.2 % (0.0-1.0); EOSINOPHILS # (AUTO) 0.1 (0.0-0.4); EOSINOPHILS % 0.5 % (0.0-6.0); HEMATOCRIT 33.6 % (38.2-49.6); HEMOGLOBIN 11.2 g/dL (14.0-18.0); LYMPHOCYTES # (AUTO) 1.4 (1.0-3.2); LYMPHOCYTES % 11.2 % (18.0-39.1); MEAN CORPUSCULAR HEMOGLOBIN 30.6 pg (28-32); MEAN CORPUSCULAR HGB CONC 33.3 g/dL (31-35); MEAN CORPUSCULAR VOLUME 91.8 fL (81-99); MONOCYTES # (AUTO) 0.6 (0.2-0.8); MONOCYTES % 5.1 % (4.4-11.3); NEUTROPHILS # (AUTO) 10.1 (2.1-6.9); NEUTROPHILS % 81.9 % (38.7-80.0); PLATELET COUNT 94 x10e3/uL (140-360); RED BLOOD COUNT 3.66 x10e6/uL (4.3-5.7); RED CELL DISTRIBUTION WIDTH 13.9 % (11.7-14.4)
--- NOTE | 2018-12-26 07:01 | NUR ---
received report from night time nanny nurse at shift change, pt awake, alert, laying in bed in semi-fowlers, no s/s distress noted, respirations even and unlabored, call light within reach. will continue to monitor.
[2018-12-26 07:35] LABS: ALANINE AMINOTRANSFERASE 38 IU/L (0-55); ALBUMIN 3.2 g/dL (3.5-5.0); ALBUMIN/GLOBULIN RATIO 0.9 (0.8-2.0); ALKALINE PHOSPHATASE 68 IU/L (40-150); ANION GAP 10.6 mmol/L (8-16); BLOOD UREA NITROGEN 10 mg/dL (7-26); BUN/CREATININE RATIO 11 (6-25); CALCIUM 9.7 mg/dL (8.4-10.2); CARBON DIOXIDE 24 mmol/L (22-29); CHLORIDE 105 mmol/L (98-107); CREATININE, SERUM 0.93 mg/dL (0.72-1.25); EST GLOMERULAR FILTRATION RATE > 60 ML/MIN (60-); GLUCOSE 169 mg/dL (74-118); POTASSIUM 3.6 mmol/L (3.5-5.1); SODIUM 136 mmol/L (136-145)
[2018-12-26] MEDS: INSULIN REGULAR, HUMAN 100 UNIT/1 ML 3ML VIAL SQ SCH ×4 (08:00→20:01)
[2018-12-26] MEDS: GABAPENTIN 300 MG CAP PO SCH ×3 (08:00→20:01)
[2018-12-26] MEDS: LISINOPRIL 10 MG TAB PO SCH (08:00)
[2018-12-26] MEDS: HYDROCODONE/APAP 7.5MG-325MG 1 EA TAB PO PRN ×2 (08:00→20:01)
[2018-12-26] MEDS: FUROSEMIDE 20 MG TAB PO SCH ×2 (08:00→17:23)
[2018-12-26] MEDS: ISOSORBIDE MONONITRATE 30 MG TAB CR PO SCH (08:00)
[2018-12-26] MEDS: METOPROLOL SUCCINATE 25 MG TAB XL PO SCH (08:00)
--- NOTE | 2018-12-26 08:23 | NUR ---
pt has fever, blankets removed, temperature in room turned down, pt instructed to use IS, pt given Tylenol prior to shift change, will recheck temperature, aware
[2018-12-26] MEDS ORDERED: FUROSEMIDE INJ 10 MG/ML 4 ML VIAL IV ONE (13:15)
[2018-12-26] MEDS ORDERED: POTASSIUM CHLORIDE 10MEQ EA PO ONE (14:00)
[2018-12-26] MEDS ORDERED: FUROSEMIDE INJ 80 MG in SODIUM CHLORIDE 0.9% 100 ML IV ONE (14:00)
[2018-12-26] MEDS: LEVOFLOXACIN 750MG/D5W 150ML 150 ML IV SCH (16:03)
[2018-12-26] MEDS: NEOMYCIN/POLYMYXIN/BACITRACIN 15 GM TUBE TOP SCH ×2 (19:00→22:32)
--- NOTE | 2018-12-26 19:10 | NUR ---
WALKING ROUNDS PERFORMED, RECEIVED PT LAYING SEMI FOWLERS IN BED, AAOX3, RR EVEN AND NON-LABORED, ON ROOM AIR. X4 TROCAR SITES TO ABDOMEN CDI WITH STERI STRIPS IN PLACE, NOTED TO HAVE BLISTERS TO BILATERAL LATERAL SIDES OF EACH TROCAR SITE AFTER BANDAIDS WERE REMOVED BY . PT REPORTS THEY BURN. . LEFT PT LAYING SEMI FOWLERS IN BED, BED IN LOW LOCKED POSITION, SIDE RAILS UPX2, CALL LIGHT AND PHONE WITHIN REACH.
--- NOTE | 2018-12-26 19:24 | NUR ---
report given to maintenance supervisor 2nd shift rn, pt left in stable condition, denies pain at this time, call light in reach will continue care
[2018-12-27 00:21] VITALS: BP 129/62
[2018-12-27] MEDS: ALBUTEROL SULF 0.083% NEB SOLN 3 ML NEB NEB SCH ×3 (00:31→14:35)
[2018-12-27] MEDS: HYDROCODONE/APAP 7.5MG-325MG 1 EA TAB PO PRN ×2 (02:32→14:56)
[2018-12-27] MEDS: PANTOPRAZOLE 40 MG 10ML VIAL IV SCH ×2 (02:32→14:56)
[2018-12-27 04:00] VITALS: BP 147/66
[2018-12-27] MEDS: HYDROMORPHONE 1MG/1ML INJ IV PRN ×2 (05:07→11:39)
[2018-12-27] MEDS: ONDANSETRON HCL INJ 2MG/ML 2ML 2 MG/ML VIAL IV PRN ×2 (05:07→11:39)
[2018-12-27 06:02] LABS: BASOPHILS % 0.3 % (0.0-1.0); EOSINOPHILS # (AUTO) 0.3 (0.0-0.4); EOSINOPHILS % 1.9 % (0.0-6.0); HEMOGLOBIN 11.5 g/dL (14.0-18.0); LYMPHOCYTES # (AUTO) 1.7 (1.0-3.2); LYMPHOCYTES % 12.6 % (18.0-39.1); MEAN CORPUSCULAR HEMOGLOBIN 29.9 pg (28-32); MEAN CORPUSCULAR HGB CONC 32.9 g/dL (31-35); MEAN CORPUSCULAR VOLUME 91.1 fL (81-99); MONOCYTES # (AUTO) 0.7 (0.2-0.8); MONOCYTES % 5.2 % (4.4-11.3); NEUTROPHILS # (AUTO) 10.4 (2.1-6.9); NEUTROPHILS % 78.7 % (38.7-80.0); PLATELET COUNT 115 x10e3/uL (140-360); RED BLOOD COUNT 3.84 x10e6/uL (4.3-5.7); RED CELL DISTRIBUTION WIDTH 13.9 % (11.7-14.4)
[2018-12-27 06:38] LABS: ALANINE AMINOTRANSFERASE 27 IU/L (0-55); ALBUMIN 3.3 g/dL (3.5-5.0); ALBUMIN/GLOBULIN RATIO 0.8 (0.8-2.0); ALKALINE PHOSPHATASE 93 IU/L (40-150); ANION GAP 14.6 mmol/L (8-16); BLOOD UREA NITROGEN 11 mg/dL (7-26); BUN/CREATININE RATIO 11 (6-25); CALCIUM 10.2 mg/dL (8.4-10.2); CARBON DIOXIDE 24 mmol/L (22-29); CHLORIDE 101 mmol/L (98-107); CREATININE, SERUM 0.98 mg/dL (0.72-1.25); EST GLOMERULAR FILTRATION RATE > 60 ML/MIN (60-); GLUCOSE 239 mg/dL (74-118); POTASSIUM 3.6 mmol/L (3.5-5.1); SODIUM 136 mmol/L (136-145)
[2018-12-27] MEDS: INSULIN REGULAR, HUMAN 100 UNIT/1 ML 3ML VIAL SQ SCH ×3 (07:39→16:50)
[2018-12-27 08:05] VITALS: BP 133/66
[2018-12-27 08:49] VITALS: BP 133/66
[2018-12-27] MEDS: GABAPENTIN 300 MG CAP PO SCH ×2 (08:51→14:56)
[2018-12-27] MEDS: ISOSORBIDE MONONITRATE 30 MG TAB CR PO SCH (08:51)
[2018-12-27] MEDS: FUROSEMIDE 20 MG TAB PO SCH ×2 (08:51→16:48)
[2018-12-27] MEDS: LISINOPRIL 10 MG TAB PO SCH (08:51)
[2018-12-27] MEDS: METOPROLOL SUCCINATE 25 MG TAB XL PO SCH (08:52)
[2018-12-27] MEDS: NEOMYCIN/POLYMYXIN/BACITRACIN 15 GM TUBE TOP SCH ×2 (08:52→16:48)
[2018-12-27 11:56] VITALS: BP 133/62
--- NOTE | 2018-12-27 12:42 | Discharge Summary ---
ADMIT DIAGNOSES: 1. Acute cholecystitis with cholelithiasis. 2. Acute renal insufficiency. 3. Type 2 diabetes mellitus. 4. Hypertensive heart disease. DISCHARGE DIAGNOSES: 1. Acute cholecystitis with cholelithiasis. 2. Status post laparoscopic cholecystectomy. 3. Left-sided pneumonia, resolving. 4. Urinary tract infection. 5. Acute renal insufficiency, resolved. 6. Type 2 diabetes mellitus. 7. Hypertensive heart disease. HOSPITAL COURSE: This is a 63-year-old man, who was initially admitted to [facility] with diagnosis of acute cholecystitis with cholelithiasis. During this hospitalization, he was also diagnosed with acute renal insufficiency. The patient's acute renal failure resolved with intravenous fluids. During this hospitalization, the patient underwent a gallbladder sonogram that confirmed numerous gallstones. The patient underwent HIDA scan during this hospitalization, which apparently excluded acute cystic duct obstruction. The patient also underwent a CT of the abdomen and pelvis during this hospitalization that confirmed cholelithiasis, but no evidence for pancreatitis appreciated. The patient underwent successful laparoscopic cholecystectomy during this hospitalization, which was performed by Dr. Shyam Cowan. The patient developed postoperative fever and leukocytosis. The patient had chest x-ray done on admission, which was unremarkable, but chest x-ray done on December 25, 2018, did reveal left greater than right basal atelectasis. The patient just was diagnosed with left lower lobe pneumonia. The patient improved clinically with intravenous levofloxacin with regard to his left lower lobe pneumonia as well as urinary tract infection. During this hospitalization, he did receive nebulized bronchodilators for his pneumonia. CONDITION: The patient's condition on discharge is stable. DISCHARGE MEDICATIONS: 1. Levofloxacin 750 mg by mouth daily for five more days. 2. Metoprolol succinate 12.5 mg daily. 3. Furosemide 20 mg b.i.d. 4. Lisinopril 10 mg daily. 5. Isosorbide mononitrate 30 mg daily. 6. Gabapentin 1200 mg t.i.d. 7. Pantoprazole 40 mg. 8. Omeprazole 40 mg daily. 9. [place] 7.5/325 one every 6 hours p.r.n. pain, 20 prescribed. 10. The patient can resume metformin 500 mg daily at home. 11. Atorvastatin 40 mg at bedtime. 12. Aspirin 81 mg daily. 13. Tizanidine 4 mg p.o. q.6 hours p.r.n. muscle spasms. FOLLOWUP INSTRUCTIONS: The patient is instructed to follow up with his primary care physician at the [facility] within 10-14 days. Fredo Piedra MD MEO/MODL /[id number] cc: Shyam Cowan MD MTDD
[2018-12-27] MEDS ORDERED: NORCO 7.5-3251 EACH PO (14:19)
[2018-12-27] MEDS ORDERED: LEVAQUIN500 MG PO (14:19)
[2018-12-27] MEDS: LEVOFLOXACIN 750MG/D5W 150ML 150 ML IV SCH (14:56)
[2018-12-27 16:18] VITALS: BP 121/58
--- NOTE | 2018-12-27 17:47 | NUR ---
pt has been dc, recvd dc instructions and rx. pt has been awaiting transportation
== END 2018-12-27 17:58 | disposition home or self-care (01) | DRG 417 ==
LOC: ER 16:25 → ERHOLD 19:29 → MED/SURG 21:43
PROC: 0FT44ZZ Resection of Gallbladder, Percutaneous Endoscopic Approach (ICD-10-PCS; principal; 2018-12-24 16:35)
DX: K80.12 Calculus of gallbladder with acute and chronic cholecystitis without obstruction (principal); J18.9 Pneumonia, unspecified organism; N39.0 Urinary tract infection, site not specified; J98.11 Atelectasis; N17.9 Acute kidney failure, unspecified; I25.2 Old myocardial infarction; Z86.19 Personal history of other infectious and parasitic diseases; E78.5 Hyperlipidemia, unspecified; E11.42 Type 2 diabetes mellitus with diabetic polyneuropathy; M19.90 Unspecified osteoarthritis, unspecified site; Z95.1 Presence of aortocoronary bypass graft; I25.10 Atherosclerotic heart disease of native coronary artery without angina pectoris; K21.9 Gastro-esophageal reflux disease without esophagitis; E11.22 Type 2 diabetes mellitus with diabetic chronic kidney disease; I12.9 Hypertensive chronic kidney disease with stage 1 through stage 4 chronic kidney disease, or unspecified chronic kidney disease; N18.9 Chronic kidney disease, unspecified; J20.9 Acute bronchitis, unspecified; Z86.010 Personal history of colon polyps; R50.82 Postprocedural fever; D72.829 Elevated white blood cell count, unspecified; Z79.82 Long term (current) use of aspirin; Z79.4 Long term (current) use of insulin
CPT/HCPCS: 36415; 71045; 74160; 76705; 78227; 80053; 81001; 82150; 82550; 82553; 82948; 83690; 83735; 84484; 85025; 85610; 85730; 87086; 87521; 88304; 93005; 94640; 96361; 99284; A9537; C1766; J1170; J1817; J1940; J2001; J2175; J2250; J2270; J2405; J3010; J7030; J7050; Q9967

== ENCOUNTER 2020-05-01 14:02 | Emergency (ER) | payer MEDICARE ==
[~2020-05-01] VITALS: Ht 154.4 cm; Wt 68.9 kg
[~2020-05-01 14:02] MED LIST changes: +HUMULIN N100 UNITS/ SC; +LEVAQUIN500 MG PO; +NORCO 7.5-3251 EACH PO
== END 2020-05-01 16:14 | disposition home or self-care (01) ==
LOC: ER 14:15
DX: U07.1 COVID-19 (principal); R05 Cough; R06.02 Shortness of breath; E11.42 Type 2 diabetes mellitus with diabetic polyneuropathy; I10 Essential (primary) hypertension; E78.5 Hyperlipidemia, unspecified; I25.10 Atherosclerotic heart disease of native coronary artery without angina pectoris; I25.2 Old myocardial infarction; Z95.1 Presence of aortocoronary bypass graft
CPT/HCPCS: 71045; 93005; 99283